=== PATIENT | female | born 1970 | race Two or more races ===

== ENCOUNTER 2021-10-29 15:36 | Emergency (ER) | payer OTHER ==
[~2021-10-29] VITALS: Ht 167.6 cm; Wt 74.8 kg
[2021-10-29 17:09] VITALS: BP 137/83
[2021-10-29] MEDS ORDERED: IBUP600T27 PO (18:13)
[2021-10-29] MEDS ORDERED: METH750T22 PO (18:13)
[2021-10-29] MEDS ORDERED: ACETAMINOPHEN 500 MG TAB PO ONE (18:15)
== END 2021-10-29 18:21 | disposition home or self-care (01) ==
LOC: EDBD 15:36 → ER 15:36
DX: S16.1XXA Strain of muscle, fascia and tendon at neck level, initial encounter (principal); R51.9 Headache, unspecified; V43.52XA Car driver injured in collision with other type car in traffic accident, initial encounter; Y93.89 Activity, other specified; Y92.89 Other specified places as the place of occurrence of the external cause; Y99.8 Other external cause status
CPT/HCPCS: 70450; 72040